=== PATIENT | female | born 1965 | race Caucasian/White ===

== ENCOUNTER → 2020-09-29 08:12 | Outpatient (CLI) | payer OTHER, SELFPAY ==
[2020-09-29 20:28] LABS: Alanine Aminotransferase 13 IU/L (<35); Albumin 4.1 g/dL (3.5-5.0); Albumin Globulin Ratio 1.6 (1.0-2.8); Alkaline Phosphatase 45 U/L (38-126); Aspartate Aminotransferase 23 IU/L (14-36); BUN Creatinine Ratio 15.5 (6-22); Bilirubin Total 1.1 mg/dL (0.2-1.3); Blood Urea Nitrogen 13 mg/dL (7-17); Calcium 9.8 mg/dL (8.4-10.2); Carbon Dioxide 30 mmol/L (22-32); Chloride 103 mmol/L (98-107); Estimated Glomerular Filt Rate > 60.0 mL/min (>60); Globulin 2.6 g/dL (1.7-4.1); Glucose 87 mg/dL (70-100); HEMOLYSIS < 15 (0-50); Potassium 4.4 mmol/L (3.4-5.1); Sodium 139 mmol/L (137-145); Total Protein 6.7 g/dL (6.3-8.2)
[2020-09-29 20:39] LABS: Vitamin D 25 Hydroxy (D3) 46.1 ng/mL (30.0-100.0)
[2020-09-29 21:28] LABS: Cholesterol 175 mg/dL (140-199); HDL Cholesterol 66 mg/dL (40-60); LDL Cholesterol Calculated 92 mg/dL (<100); Phosphorous 3.4 mg/dL (2.5-4.5); Triglycerides 85 mg/dL (35-150); Uric Acid 5.5 mg/dL (2.5-6.2)
[2020-09-29 21:35] LABS: Iron 113 ug/dL (37-170)
[2020-09-29 21:50] LABS: Lactate Dehydrogenase 354 U/L (313-618)
[2020-09-29 21:59] LABS: Thyroid Stimulating Hormone 1.59 uIU/mL (0.47-4.68)
== END ==
PROVIDERS: Family Provider Registered Nurse; PCP Registered Nurse; Visit Provider Registered Nurse
DX: E03.9 Hypothyroidism, unspecified (principal)
CPT/HCPCS: 80053; 80061; 82306; 83001; 83002; 83540; 83615; 84100; 84443; 84550

== ENCOUNTER → 2021-11-15 08:30 | Outpatient (CLI) | payer OTHER, SELFPAY ==
[2021-11-15 19:32] LABS: Add Manual Diff / Slide Review NO; Basophils Absolute Auto 0 /uL (0-100); Basophils Percent Auto 0.8 % (0-2); Eosinophils Absolute Auto 100 /uL (0-450); Eosinophils Percent Auto 3.3 % (2-4); Hemoglobin 13.9 g/dL (12.0-16.0); Lymphocytes Absolute Auto 1000 /uL (1100-4500); Lymphocytes Percent Auto 22.2 % (25-40); Mean Corpuscular HGB Conc 34.8 % (30-36); Mean Corpuscular Hemoglobin 31.1 PG (26-34); Mean Corpuscular Volume 89.3 fL (80-100); Monocytes Absolute Auto 400 /uL (0-900); Monocytes Percent Auto 9.5 % (3-14); Neutrophils Absolute Auto 2900 /uL (1500-7000); Neutrophils Percent Auto 64.2 % (50-75); Platelet Count 209 X10^3/uL (150-400); Red Blood Cell Count 4.48 X10^6/uL (4.0-5.2); Red Cell Distribution Width 12.6 % (11.6-14.8); White Blood Cell Count 4.5 X10^3/uL (4.5-11.0)
[2021-11-15 19:53] LABS: Erythrocyte Sedimentation Rate 4 MM/HR (0-20)
[2021-11-15 20:03] LABS: Alanine Aminotransferase 12 IU/L (<35); Albumin 4.4 g/dL (3.5-5.0); Albumin Globulin Ratio 1.7 (1.0-2.8); Alkaline Phosphatase 47 U/L (38-126); Aspartate Aminotransferase 23 IU/L (14-36); BUN Creatinine Ratio 14.4 (6-22); Bilirubin Total 1.3 mg/dL (0.2-1.3); Blood Urea Nitrogen 13 mg/dL (7-17); Calcium 9.5 mg/dL (8.4-10.2); Carbon Dioxide 30 mmol/L (22-32); Chloride 103 mmol/L (98-107); Cholesterol 196 mg/dL (140-199); Estimated Glomerular Filt Rate > 60 mL/min (>60); Globulin 2.6 g/dL (1.7-4.1); Glucose 81 mg/dL (70-100); HDL Cholesterol 71 mg/dL (40-60); HEMOLYSIS < 15 (0-50); LDL Cholesterol Calculated 109 mg/dL (<100); Potassium 4.2 mmol/L (3.4-5.1); Sodium 138 mmol/L (137-145); Triglycerides 78 mg/dL (35-150)
[2021-11-15 20:18] LABS: Follicle Stimulating Hormone 84.8 mIU/mL; Luteinizing Hormone 24.3 mIU/mL; Vitamin D 25 Hydroxy (D3) 41.7 ng/mL (30.0-100.0)
[2021-11-15 20:20] LABS: T4 Total Thyroxine 6.53 ug/dL (5.5-11.0); T7 (Free Thyroxine Index) 2.12 (1.65-3.89); Triiodothryronine T3 Uptake 32.5 % (23.5-40.5)
[2021-11-15 20:34] LABS: Thyroid Stimulating Hormone 1.31 uIU/mL (0.47-4.68)
== END ==
PROVIDERS: Family Provider Registered Nurse; PCP Registered Nurse; Visit Provider Registered Nurse
DX: E03.9 Hypothyroidism, unspecified (principal); N94.3 Premenstrual tension syndrome; R53.83 Other fatigue
CPT/HCPCS: 80053; 80061; 82306; 83001; 83002; 84436; 84443; 84479; 85025; 85651

== ENCOUNTER → 2022-11-02 10:31 | Outpatient (CLI) | payer OTHER, SELFPAY ==
[2022-11-02 19:53] LABS: Add Manual Diff / Slide Review NO; Basophils Absolute Auto 0 /uL (0-100); Basophils Percent Auto 0.8 % (0-2); Eosinophils Absolute Auto 100 /uL (0-450); Eosinophils Percent Auto 2.2 % (2-4); Hematocrit 42.9 % (36-46); Hemoglobin 14.5 g/dL (12.0-16.0); Lymphocytes Absolute Auto 1400 /uL (1100-4500); Lymphocytes Percent Auto 23.7 % (25-40); Mean Corpuscular HGB Conc 33.9 % (30-36); Mean Corpuscular Hemoglobin 30.7 PG (26-34); Mean Corpuscular Volume 90.7 fL (80-100); Monocytes Absolute Auto 500 /uL (0-900); Monocytes Percent Auto 9.2 % (3-14); Neutrophils Absolute Auto 3700 /uL (1500-7000); Neutrophils Percent Auto 64.1 % (50-75); Platelet Count 223 X10^3/uL (150-400); Red Blood Cell Count 4.74 X10^6/uL (4.0-5.2); Red Cell Distribution Width 13.3 % (11.6-14.8); White Blood Cell Count 5.8 X10^3/uL (4.5-11.0)
[2022-11-02 20:06] LABS: Alanine Aminotransferase 16 IU/L (<35); Albumin 4.5 g/dL (3.5-5.0); Albumin Globulin Ratio 1.6 (1.0-2.8); Alkaline Phosphatase 56 U/L (38-126); Aspartate Aminotransferase 24 IU/L (14-36); BUN Creatinine Ratio 14.6 (6-22); Bilirubin Total 1.3 mg/dL (0.2-1.3); Blood Urea Nitrogen 12 mg/dL (7-17); Calcium 9.7 mg/dL (8.4-10.2); Carbon Dioxide 31 mmol/L (22-32); Chloride 100 mmol/L (98-107); Cholesterol 201 mg/dL (140-199); Estimated Glomerular Filt Rate > 60 mL/min (>60); Gamma Glutamyl Transpeptidase 14 U/L (12-43); Globulin 2.8 g/dL (1.7-4.1); Glucose 83 mg/dL (70-100); HDL Cholesterol 72 mg/dL (40-60); HEMOLYSIS < 15 (0-50); LDL Cholesterol Calculated 109 mg/dL (<100); Lactate Dehydrogenase 170 U/L (120-246); Phosphorous 3.6 mg/dL (2.5-4.5); Potassium 4.3 mmol/L (3.4-5.1); Sodium 138 mmol/L (137-145); Total Protein 7.3 g/dL (6.3-8.2); Triglycerides 99 mg/dL (35-150); Uric Acid 5.2 mg/dL (2.5-6.2)
[2022-11-02 20:16] LABS: Vitamin D 25 Hydroxy (D3) 33.5 ng/mL (30.0-100.0)
[2022-11-02 20:21] LABS: Erythrocyte Sedimentation Rate 3 MM/HR (0-20)
[2022-11-02 20:24] LABS: T4 Total Thyroxine 7.38 ug/dL (5.5-11.0); Triiodothryronine T3 Uptake 30.2 % (23.5-40.5)
[2022-11-02 20:38] LABS: Thyroid Stimulating Hormone 1.87 uIU/mL (0.47-4.68)
[2022-11-04 18:07] LABS: Anti Thyroglobulin Antibody <1.0 IU/mL (0.0-0.9); Thyroid Peroxidase Antibodies 33 IU/mL (0-34)
== END ==
PROVIDERS: Family Provider Registered Nurse; PCP Registered Nurse; Visit Provider Registered Nurse
DX: E03.9 Hypothyroidism, unspecified (principal); R53.83 Other fatigue; N95.1 Menopausal and female climacteric states
CPT/HCPCS: 80053; 80061; 82306; 82977; 83615; 84100; 84436; 84443; 84479; 84550; 85025; 85651; 86376; 86800

== ENCOUNTER → 2023-04-13 | Outpatient (CLI) | payer OTHER, SELFPAY ==
--- NOTE | 2023-04-13 | DI.MG.S_ITS ---
UNILATERAL LEFT DIGITAL DIAGNOSTIC MAMMOGRAM 3D/2D WITH ADDITIONAL VIEWS: 04/13/2023 CLINICAL: Additional evaluation requested from prior study. Comparison is made to exam dated: 02/16/2023 mammogram - outside location. The left breast is heterogeneously dense, which may obscure small masses (category c / 51-75% glandular tissue). There is a possible focal asymmetry in the left breast at 1 o'clock posterior depth. There is architectural distortion associated with the focal asymmetry. No other significant masses or calcifications are seen in the breast. IMPRESSION: INCOMPLETE: NEEDS ADDITIONAL IMAGING EVALUATION The possible focal asymmetry in the left breast is indeterminate. An ultrasound is recommended. Based on the Tyrer Cuzick model (a risk assessment model) the patient's lifetime risk is 17.2% and her 10 year risk is 6.3%. According to the ACR, ACS, and NCCN guidelines, an annual breast MRI exam along with mammogram is recommended if the patient's lifetime risk is 20% or greater. This exam was interpreted at Station ID: [id number]. NOTE: For mammograms, a report in lay terms will be sent to the patient. Approximately 15% of breast malignancies will not be visualized mammographically. In the management of a palpable breast mass, a negative mammogram must not discourage biopsy of a clinically suspicious lesion. Electronically Signed By: Danny Haddad M.D. lc/:04/13/2023 11:03:33 ACR BI-RADS Category 0: Incomplete 3340F
--- NOTE | 2023-04-13 09:32 | DI.US.S_ITS ---
PROCEDURE: US BREAST LT LIMITED COMPARISON: None. INDICATIONS: ABNORMAL MAMMOGRAM FINDINGS: IMPRESSION: Dictated by: Danny Haddad M.D. on 04/13/2023 at 11:03 Approved by: Danny Haddad M.D. on 04/13/2023 at 11:04
--- NOTE | 2023-04-13 10:26 | DI.US.S_ITS ---
Patient Name: MARYA GARCIA date: 1965 Sex: F Attending Physician: Melinda Indications: Date: 04/13/2023 11:04 At the request of: RANDY DE SANTIAGO Procedure: US breast LT limited ULTRASOUND OF LEFT BREAST AND AXILLA: 04/13/2023 CLINICAL: Patient returns today to evaluate a focal asymmetry in the left breast. No prior exams were available for comparison. Color flow and real-time ultrasound of the left breast axilla were performed. Liao scale images of the real-time examination were reviewed. There is a 1.1 cm x 1 cm x 0.6 cm irregular mass with an indistinct margin in the left breast at 1 o'clock posterior depth 4 cm from the nipple. This correlates with mammography findings. No significant abnormalities were seen sonographically in the left axilla. IMPRESSION: SUSPICIOUS OF MALIGNANCY The 1.1 cm x 1 cm x 0.6 cm irregular mass in the left breast is suspicious of malignancy. An ultrasound guided biopsy is recommended. This exam was interpreted at Station ID: [id number]. Electronically Signed By: Danny Haddad M.D. /:04/13/2023 11:04:30 letter sent: Biopsy Required Ultrasound BI-RADS: 4 Suspicious for malignancy
== END ==
LOC: MAMMO 09:31
PROVIDERS: Family Provider Registered Nurse; PCP Physician Assistant; Referring Provider Physician Assistant; Visit Provider Physician Assistant
DX: R92.8 Other abnormal and inconclusive findings on diagnostic imaging of breast (principal); N63.21 Unspecified lump in the left breast, upper outer quadrant
CPT/HCPCS: 76642; 77065; G0279

== ENCOUNTER → 2023-04-25 07:48 | Outpatient (CLI) | payer OTHER, SELFPAY ==
--- NOTE | 2023-04-25 | PATH_ITS ---
[facility] Accession Number: [id number] No. of containers..01 Tissue . 01 Material submitted: . breast - LEFT BREAST 12:30 4 CM FN MASS . 01 Clinical history: . ABNORMAL LEFT MAMMOGRAM . 01 Diagnosis: Left Breast, 12:30, 4 cm from Nipple, Image-Guided Core Biopsy: Fibroepithelial lesion consistent with fibroadenoma, hyalinized. Negative for significant atypia and malignancy. MRV 04/27/2023 1754 Local . 01 Electronically signed: . Luly Manriquez MD, Pathologist NPI- [id number] . 01 Gross description: . Received one formalin-filled container, labeled with the patient's name and designated left breast 12:30, 4 cm FN mass. Sample is removed from a white to translucent plastic filter, contains multiple pieces of tissue and clotted blood which range in size from less than 0.1 cm to 1.5 x 0.2 x 0.2 cm. The specimen is entirely submitted in one cassette. Possible collection date and time per requisition: 04/25/2023 at 8:38. Total fixation time: Approximately 42 hours. ([id number]) /FRR 04/26/2023 0302 Local . 01 Pathologist provided ICD-10: N63.20 . 01 CPT . 976083 Specimen Comment: A courtesy copy of this report has been sent to [facility] Performed at: 01 [facility] [address] [place] [id number] MD Bijan Gallagher MD Phone: [phone]
--- NOTE | 2023-04-25 | DI.MG.S_ITS ---
UNILATERAL LEFT DIGITAL DIAGNOSTIC MAMMOGRAM 3D/2D - LEFT BREAST POST-NEEDLE BIOPSY: 04/25/2023 CLINICAL: Post left breast ultrasound biopsy, clip placment imaging. Comparison is made to exams dated: 04/13/2023 mammogram - [facility] and 02/16/2023 mammogram - outside location. The left breast is heterogeneously dense, which may obscure small masses (category c / 51-75% glandular tissue). There also is a marker clip in the appropriate position in the left breast at 1 o'clock posterior depth. This marker clip placement is at the biopsy site. No other significant masses or calcifications are seen in the breast. IMPRESSION: INCOMPLETE: NEEDS ADDITIONAL IMAGING EVALUATION There was a successful marker clip placement in the left breast at 1 o'clock posterior depth. Based on the Tyrer Cuzick model (a risk assessment model) the patient's lifetime risk is 17.2% and her 10 year risk is 6.3%. According to the ACR, ACS, and NCCN guidelines, an annual breast MRI exam along with mammogram is recommended if the patient's lifetime risk is 20% or greater. This exam was interpreted at Station ID: [id number]. NOTE: For mammograms, a report in lay terms will be sent to the patient. Approximately 15% of breast malignancies will not be visualized mammographically. In the management of a palpable breast mass, a negative mammogram must not discourage biopsy of a clinically suspicious lesion. Electronically Signed By: Esteban Servin M.D. acr/:04/25/2023 09:46:41 ACR BI-RADS Category 0: Incomplete 3340F
--- NOTE | 2023-04-25 | DI.US.S_ITS ---
ULTRASOUND GUIDED BIOPSY LEFT BREAST WITH MARKING DEVICE INSERTED AND POST MAMMOGRAPHIC IMAGIN04/25/2023 CLINICAL: Left breast mass. PATIENT CONSENT: Risks (minor bleeding, infection, vasovagal reaction and repeat procedure), benefits and alternatives were explained to the patient and written informed consent was obtained. Correlation is made to exams dated: 04/13/2023 mammogram, 04/13/2023 ultrasound - [facility], and 02/16/2023 mammogram - outside location. An ultrasound guided biopsy using real-time ultrasound was performed for the mass located in the left breast at 1 o'clock posterior depth. The skin was prepped in the usual manner. Local anesthetic was administered to the access site. A small incision was made in the breast. The abnormality was approached from the lateral aspect. An 18 gauge biopsy needle was placed adjacent to the abnormality under ultrasound guidance. Once the needle was documented to be in the correct location, six specimens were obtained using Elevation 12 guage. A Visionclip was inserted into the biopsy cavity. Post procedure mammographic imaging demonstrates the location device at the targeted area. The specimens were sent to the laboratory for pathological analysis. IMPRESSION: ULTRASOUND GUIDED BIOPSY BENIGN Ultrasound guided biopsy of the mass in the left breast at 1 o'clock posterior depth was successful. Pathology indicates benign fibroepithelial lesion consistent with fibroadenoma, hyalinized. Negative for significant atypia and malignancy. Pathology results are concordant with imaging findings. Return to annual mammogram screening schedule is recommended. This exam was interpreted at Station ID: [id number]. Esteban Raya M.D. acr,ar/:04/30/2023 12:23:07
== END ==
PROVIDERS: Family Provider Registered Nurse; PCP Physician Assistant; Referring Provider Physician Assistant; Visit Provider Physician Assistant
DX: N63.21 Unspecified lump in the left breast, upper outer quadrant (principal); R92.8 Other abnormal and inconclusive findings on diagnostic imaging of breast
CPT/HCPCS: 19083; 77065

== ENCOUNTER → 2023-12-03 09:51 | Outpatient (CLI) | payer OTHER, SELFPAY | PROVIDERS: Family Provider Registered Nurse; PCP Physician Assistant | DX: R53.83 Other fatigue (principal); E03.9 Hypothyroidism, unspecified; N94.3 Premenstrual tension syndrome; N95.1 Menopausal and female climacteric states | CPT/HCPCS: 82306 ==

== ENCOUNTER → 2024-04-12 | Outpatient (CLI) | payer OTHER, SELFPAY ==
--- NOTE | 2024-04-12 10:42 | DI.MG.S_ITS ---
BILATERAL DIGITAL SCREENING MAMMOGRAM 3D/2D WITH CAD: 04/12/2024 CLINICAL: Routine screening. Family history of breast cancer. Comparison is made to exams dated: 02/16/2023 mammogram - outside location, 04/25/2023 mammogram, and 04/13/2023 mammogram - [facility]. The breasts are heterogeneously dense, which may obscure small masses (category c / 51-75% glandular tissue). Current study was also evaluated with a Computer Aided Detection (CAD) system. There is a biopsy clip in the left breast. No significant masses, calcifications, or other findings are seen in either breast. There has been no significant interval change. IMPRESSION: BENIGN There is no mammographic evidence of malignancy. A 1 year screening mammogram is recommended. Based on the Tyrer Cuzick model (a risk assessment model) the patient's lifetime risk is 16.9% and her 10 year risk is 6.6%. According to the ACR, ACS, and NCCN guidelines, an annual breast MRI exam along with mammogram is recommended if the patient's lifetime risk is 20% or greater. This exam was interpreted at Station ID: [id number]. NOTE: For mammograms, a report in lay terms will be sent to the patient. Approximately 15% of breast malignancies will not be visualized mammographically. In the management of a palpable breast mass, a negative mammogram must not discourage biopsy of a clinically suspicious lesion. Electronically Signed By: Catalina Tubbs M.D., Ph.D. lennie/enoc:04/17/2024 12:51:53 letter sent: Normal Exam ACR BI-RADS Category 2: Benign
== END ==
LOC: MAMMO 10:41
PROVIDERS: Family Provider Registered Nurse; PCP Physician Assistant; Referring Provider Physician Assistant; Visit Provider Physician Assistant
DX: Z12.31 Encounter for screening mammogram for malignant neoplasm of breast (principal); Z80.3 Family history of malignant neoplasm of breast
CPT/HCPCS: 77063; 77067

== ENCOUNTER → 2024-09-09 14:02 | Outpatient (CLI) | payer OTHER, SELFPAY | PROVIDERS: Family Provider Registered Nurse; PCP Physician Assistant; Visit Provider Naturopath | DX: N30.10 Interstitial cystitis (chronic) without hematuria (principal); J30.9 Allergic rhinitis, unspecified; H10.10 Acute atopic conjunctivitis, unspecified eye | CPT/HCPCS: 83520 ==